=== PATIENT | female | born 1965 | race Caucasian/White ===

== ENCOUNTER → 2018-05-07 17:11 | Outpatient (CLI) | payer BC | END | disposition home or self-care (01) | LOC: D.MAMMO 14:30 | DX: Z12.31 Encounter for screening mammogram for malignant neoplasm of breast (principal) ==

== ENCOUNTER 2019-06-02 10:00 | Outpatient (CLI) | payer BC | END 2019-06-02 11:00 | disposition home or self-care (01) | LOC: D.MAMMO 10:00 | PROVIDERS: ATTEND Nurse Practitioner Family | DX: Z12.31 Encounter for screening mammogram for malignant neoplasm of breast (principal) ==

== ENCOUNTER 2020-07-14 17:39 | Outpatient (CLI) | payer BC | END 2020-07-14 23:59 | disposition home or self-care (01) | LOC: D.MAMMO 17:39 | PROVIDERS: ATTEND Student in an Organized Health Care Education/Training Program | DX: Z12.31 Encounter for screening mammogram for malignant neoplasm of breast (principal) ==